=== PATIENT | female | born 1985 | race Two or more races ===

== ENCOUNTER 2022-02-24 19:45 | Emergency (ER) | payer OTHER ==
[~2022-02-24] VITALS: Ht 175.3 cm; Wt 100.7 kg
== END 2022-02-24 20:52 | disposition home or self-care (01) ==
LOC: ER 19:45
DX: O26.893 Other specified pregnancy related conditions, third trimester (principal); Z3A.38 38 weeks gestation of pregnancy; M79.672 Pain in left foot